=== PATIENT | female | born 1960 | race Two or more races ===

== ENCOUNTER 2019-11-03 07:07 | Day surgery (SDC) | payer OTHER ==
[~2019-11-03 07:07] MED LIST: ADVIL100 M1 PO; CLONAZEPAM0.5 MG PO; DICY20TA PO; NEXIUM 24HR20 M1 PO; TYLENOL325 MG PO
== END 2019-11-03 17:50 | disposition home or self-care (01) ==
LOC: CIR.AMB 07:07
PROVIDERS: ATTEND Colon & Rectal Surgery
DX: A63.0 Anogenital (venereal) warts (principal); K64.1 Second degree hemorrhoids; Z20.828 Contact with and (suspected) exposure to other viral communicable diseases